=== PATIENT | male | born 1995 | race Caucasian/White ===

== ENCOUNTER → 2017-05-26 | Outpatient (CLI) | payer BC ==
--- NOTE | 2017-05-27 05:00 | RADIOLOGY REPORT PS360 ---
KUB (SINGLE VIEW) HISTORY: Constipation FOR STOOL PATTERN ORDERING PHYSICIAN: Pio Curry MD PATIENT AGE: 22 years COMPARISON: None FINDINGS: There is a mild amount retained colonic feces. No obvious intestinal obstruction. A FLIGHT OPERATIONS COORDINATOR shunt is present. The shunt is coiled in the pelvis with the tip in the lower pelvic region. No disruptions evident within the visualized portion of the shunt Incidental note is made of flattening of the lateral aspect of the right femoral head etiology indeterminate. IMPRESSION: 1. Mild constipation 2. FLIGHT OPERATIONS COORDINATOR shunt present. 3. Flattening of the lateral aspect of the right femoral head
--- NOTE | 2017-05-27 05:00 | RADIOLOGY REPORT PS360 ---
KUB (SINGLE VIEW) HISTORY: Constipation FOR STOOL PATTERN ORDERING PHYSICIAN: Pio Curry MD PATIENT AGE: 22 years COMPARISON: None FINDINGS: There is a mild amount retained colonic feces. No obvious intestinal obstruction. A HOP STRAINER shunt is present. The shunt is coiled in the pelvis with the tip in the lower pelvic region. No disruptions evident within the visualized portion of the shunt Incidental note is made of flattening of the lateral aspect of the right femoral head etiology indeterminate. IMPRESSION: 1. Mild constipation 2. HOP STRAINER shunt present. 3. Flattening of the lateral aspect of the right femoral head
== END ==
LOC: RAD 17:15
DX: R10.13 Epigastric pain (principal)